=== PATIENT | male | born 1965 | race Caucasian/White ===

== ENCOUNTER 2023-12-06 04:22 | Day surgery (SDC) | payer OTHER ==
[2023-12-01 11:30] VITALS: BMI 33.9
[2023-12-06 14:20] VITALS: BP 125/86; PULSE 68; RESP 20; TEMP 97.7
== END 2023-12-06 14:31 | disposition home or self-care (01) ==
LOC: JASU-SURG 04:22
PROVIDERS: ATTEND Urology
PROC: 0TF4XZZ Fragmentation in Left Kidney Pelvis, External Approach (ICD-10-PCS; principal; 2023-12-06 13:30)
DX: N20.0 Calculus of kidney (principal)